=== PATIENT | female | born 1985 | race Caucasian/White ===

== ENCOUNTER 2023-08-13 11:11 | Emergency (ER) | payer OTHER, SELFPAY ==
[2023-08-13 11:14] VITALS: BP 129/85
[2023-08-13 11:26] VITALS: BP 119/73
--- NOTE | 2023-08-13 11:43 | ED.GENMED ---
History of Present Illness
General
Chief Complaint: Chest Pain
Time Seen by Provider: 08/13/23 11:43
Travel History
Have you had any contact with someone who has COVID-19?: No
Do you have any symptoms of coronavirus? Fever > 100 degrees, chills, cough, shortness of breath, sore throat, loss of taste or smell, muscle aches, or headache?: No
History of Present Illness
History of Present Illness:
HPI: The patient presents with central chest discomfort ongoing for the last 3 days. This is associated with dizziness, lightheadedness, and a general unwell feeling including weakness. She also reports some discomfort and swelling to the right
lower extremity behind the calf. She has had a DVT in the past and had been on Eliquis for 9 months�at that time she was taken off of control and there was some questionable concerns for protein see deficiency.
EXAM:
GENERAL: Well appearing in no distress but appears just slightly weak
HEENT: Moist oral mucosa
CARDIOVASCULAR: No murmurs, normal heart rate, regular rhythm, No chest wall tenderness
PULMONARY: No respiratory distress, breath sounds are clear and equal
ABDOMEN: Soft with no peritoneal signs, no tenderness
NEUROLOGIC: Excellent strength all extremities, no coordination deficits
PSYCHIATRIC: Appropriate mental status, normal insight and judgement
EXTREMITIES: Left lower extremity nontender, no edema, moves all extremities equally, however there is trace edema to the right lower extremity at the ankle with mild tenderness
SKIN: No rash, no lesions
TIME OF INITIAL ENCOUNTER: 11:45 AM
NUMBER AND COMPLEXITY OF PROBLEMS ADDRESSED AT THE ENCOUNTER
� Chronic conditions affecting care: History of ocular migraine, has had C-sections and has had right breast lumpectomy
� Acute Exacerbation and/or Progression of Chronic Illness: This is an acute problem
� Differential Diagnosis includes: Dehydration, ACS, DVT, electrolyte abnormality, hypothyroidism, viral syndrome
AMOUNT AND/OR COMPLEXITY OF DATA TO BE REVIEWED AND ANALYZED
� I performed an independent evaluation of and my interpretation is:
EKG: Sinus 65, normal axis, no acute ST abnormality, septal Q waves noted without significant change from 03/27/2022
CT:
X-rays:
Laboratory Studies: CBC normal, chemistries unremarkable, troponin negative, thyroid testing normal
Other: Ultrasound imaging shows no evidence for DVT
� Review of other/old records: The patient had an exercise stress test in October and which was negative for ischemia
� Clinical information was obtained by an independent historian: I spoke to a neighbor initially and then to the at bedside
� Prescriptions/Medications Considered but not given:
� Further testing considered but not performed: Consider chest x-ray however the sats are normal, she is in no respiratory distress, and breath sounds are clear and equal
RISK OF COMPLICATIONS AND/OR MORBIDITY OR MORTALITY OF PATIENT MANAGEMENT
� Social determinants of health affecting care:
� Discussion with other providers:
� Escalation of care including admission/observation vs risk of discharge considered: The patient presents with multiple complaints including a general unwell feeling. Basic labs unremarkable. EKG unchanged from prior and
troponin is negative. Room air sats are 99 to 100% and she is in no respiratory distress; lungs are clear. On reassessment after IV fluids, she does feel somewhat improved. We did talk about the possibly of adverse medication reaction from
[place] will follow through primary care doctor. I also encouraged cardiology follow-up however she prefers to see her rigging up worker in [place] as opposed to seeing a [place] rigging up worker.
Past History
Past History
ED Past Medical History: Other (Migraines) and Other (Blayne Danlos)
ED Past Surgical History: , Orthopedic and Other (Right breast lumpectomy)
Social History
Tobacco: Non-smoker
Alcohol: Occasional
Drug: None
Personal:
Living: with family
Phy Exam
Physical Exam
Physical Exam:
See HPI
Scores
Heart Score for Chest Pain Patients
STEMI patient?: Not applicable
Course
Orders/Labs/Results
Orders:
Orders
08/13/23 11:13
Electrocardiogram (*1) Urgent
Reason for Study: Chest Pain
EKG- Treatment ONCE
08/13/23 11:52
US Periph Venous LOWER Ext Vitaly Urgent
Reason For Exam: RLE swelling pain
08/13/23 11:54
0.9% Sodium Chloride 1000 ml [Nss] 1,000 ml IV BOLUS
08/13/23 12:04
Complete Blood Count/With Diff Urgent
Comprehensive Metabolic Panel Urgent
Magnesium Urgent
TSH Reflex To Free T4 Urgent
Troponin I Urgent
Abnormal Lab Results
08/13/23
12:04
BUN 21 H mg/dl
(7-17)
08/13/23 12:04
08/13/23 12:04
Vital Signs
Initial and Last Documented VS:
Initial Vital Signs
Pulse Resp BP Pulse Ox
71 20 129/85 99
08/13/23 11:14 08/13/23 11:14 08/13/23 11:14 08/13/23 11:14
Last Documented Vital Signs
Pulse Resp BP Pulse Ox
71 20 129/85 99
08/13/23 11:14 08/13/23 11:14 08/13/23 11:14 08/13/23 11:14
*Critical Care Note
Total Time (30-74mins, 75-104mins- exclusive of procedures): Not Applicable
ED Attending Note
-
Portions of this chart may have been created with voice recognition software.� Occasional wrong word or��sound alike� substitutions may have occurred due to the inherent limitations of voice recognition software.
Discharge Plan
Departure
Patient Disposition: Home (Routine Discharge)
Date of Disposition: 08/13/23
Time of Disposition: 13:30
Patient with high blood pressure during this ER visit?: Yes
Discharge Problem:
Weakness
Instructions: Weakness ED
Prescriptions:
No Action
prednisone 10 MG tablets,dose pack
10 mg PO Daily Qty: 1 0RF
Rx Instructions:
50mg x 2 days, 40mg x 2 days, 30mg x 2 days, 20mg x 2 days, 10mg x 2 days
diazepam 5 MG tablet
5 mg PO TIDPRN PRN (Reason: Pain, spasm) Qty: 15 0RF
diazepam [Valium] 5 mg tablet
5 mg PO BID PRN (Reason: muscle spasm) Qty: 10 0RF
lidocaine [Lidoderm] 5 % adhesive patch,medicated
1 patch topical DAILY Qty: 30 0RF
methylprednisolone [Medrol (Sage)] 4 mg tablets,dose pack
4 mg PO DIRECTED Qty: 21 0RF
Eliquis 5 mg tablet
5 mg PO BID Qty: 70 0RF
Rx Instructions:
10 MG BID x 7 days then 5 mg BID
Referrals:
Edmar Madrigal MD [Family Provider] -
Activity Restrictions/Additional Instructions:
The cause of your symptoms is unclear. Cardiac blood work shows no acute abnormality. Other basic labs including electrolytes, hemoglobin, white blood cell count, and thyroid testing, are all normal. Ultrasounds of both lower extremity showed no
sign of blood clots. I recommend you talk to your primary care doctor regarding further Lexapro use. Follow-up with your rigging up worker in [place].
Interventions
Interventions:
*Risk Screen - Suicide Last Done: 08/13/23 12:06
*General Assessment Last Done: 08/13/23 12:06
*Neglect/Abuse Screening Last Done: 08/13/23 12:06
*ED COVID-19 Vaccine History Last Done: 08/13/23 12:06
ED- Cardiac Assessment Last Done: 08/13/23 12:06
Discharge Date and Time
Print Language: BHUTANESE
[2023-08-13 12:00] VITALS: BP 119/68
[2023-08-13] MEDS: NSS 1000 IV (12:07)
[2023-08-13 12:16] LABS: % Basophils 0.6 % (0-2); % Eosinophils 4.5 % (0-6); % Immature Granulocytes 0.2 % (0-0.5); % Lymphocytes 26.2 % (20.5-51.1); % Monocytes 5.9 % (1.7-9.3); % Neutrophils 62.6 % (42.2-75.2); Absolute Eosinophils 0.3 10^3/uL (0-0.7); Absolute Lymphocytes 1.7 10^3/uL (1.2-3.4); Absolute Monocytes 0.4 10^3/uL (0.1-0.6); Absolute Neutrophils 4.2 10^3/uL (1.4-6.5); Hematocrit 38.3 % (37.0-47.0); Hemoglobin 13.2 g/dL (12.0-16.0); Mean Corp Hgb Conc. 34.5 g/dL (33.0-37.0); Mean Corpuscular Hgb 29.1 pg (27.0-31.0); Mean Corpuscular Volume 84.4 fL (81.0-99.0); Nucleated Red Blood Cells % 0 %; Platelet Count 244 10^3/uL (130-400); Red Blood Cell Count 4.54 10^6/uL (4.20-5.40); Red Cell Dist. Width 12.4 % (11.5-14.5); White Blood Cell Count 6.7 10^3/uL (4.8-10.8)
[2023-08-13 12:30] LABS: ALT (SGPT) 17 U/L (0-35); AST (SGOT) 25 U/L (14-36); Albumin 4.5 g/dl (3.5-5.0); Alkaline Phosphatase 41 U/L (38-126); Blood Urea Nitrogen 21 mg/dl (7-17); Calcium 9.4 mg/dl (8.4-10.2); Carbon Dioxide 24 mmol/L (22-30); Chloride 105 mmol/L (98-107); Glucose 95 mg/dl (70-99); Sodium 135 mmol/L (135-145); Total Bilirubin 0.5 mg/dl (0.2-1.3); Total Protein 7.3 g/dl (6.3-8.2); eGFR > 60.00
[2023-08-13 12:41] LABS: Troponin I < 0.012 ng/ml
[2023-08-13 13:00] LABS: TSH Reflex To Free T4 1.06 uIU/ml (0.47-4.68)
[2023-08-13 13:38] VITALS: BP 106/67
== END 2023-08-13 13:50 | disposition home or self-care (01) ==
LOC: EMR 11:11
PROVIDERS: EMERGENCY PHYSICIAN Emergency Medicine; FAMILY PHYSICIAN Family Medicine
DX: R53.1 Weakness (principal); Q79.60 Ehlers-Danlos syndrome, unspecified; Z79.01 Long term (current) use of anticoagulants; Z86.718 Personal history of other venous thrombosis and embolism
CPT/HCPCS: 99284; 96360; 80053; 83735; 84443; 84484; 85025; 93005; 93970

== ENCOUNTER → 2024-05-14 13:49 | Outpatient (REF) | payer OTHER, SELFPAY | LOC: MRI 3T 13:49 | PROVIDERS: ATTENDING PHYSICIAN Physician Assistant; FAMILY PHYSICIAN Family Medicine | DX: S43.431A Superior glenoid labrum lesion of right shoulder, initial encounter (principal) | CPT/HCPCS: 23350; 73040; 73222 ==